=== PATIENT | female | born 1975 | race Caucasian/White ===

== ENCOUNTER 2016-07-28 12:16 | Outpatient (CLI) ==
--- NOTE | 2016-07-28 13:14 | DI ---
Exam: Two views right shoulder Clinical indication: Cervicalgia with right shoulder pain. Findings: There are no fractures, dislocations or other significant bony abnormality. The visualized ribs are within normal limits. The visualized pulmonary parenchyma is unremarkable. Impression: Negative radiographs of the right shoulder.
--- NOTE | 2016-07-28 13:14 | DI ---
EXAM: Three views of the cervical spine HISTORY: Cervicalgia. COMPARISON: None FINDINGS: There is no acute compression fracture or subluxation. There is no lytic or blastic lesio n. There is straightening of the cervical spine. The facets and posterior processes are normal. T he prevertebral soft tissues are normal. The odontoid process is unremarkable. IMPRESSION: 1. No compression fracture or subluxation of the cervical spine. 2. Nonspecific mild straightening of the cervical spine.
--- NOTE | 2016-07-28 13:15 | DI ---
EXAM: LEFT SHOULDER HISTORY: Shoulder and neck pain FINDINGS: Left shoulder three-view. Bone and joint structures are within normal limits. There is n o joint dislocation or fracture identified. Bone density and soft tissues are unremarkable. IMPRESSION: Within normal limits.
== END 2016-07-28 12:17 | disposition home or self-care (01) ==
LOC: RAD 12:16
PROVIDERS: ATTEND Nurse Practitioner Family
DX: M54.2 Cervicalgia (principal); M25.511 Pain in right shoulder

== ENCOUNTER 2016-09-20 12:14 | Outpatient (CLI) ==
--- NOTE | 2016-09-20 13:18 | DI ---
EXAM: Left knee four views HISTORY: Pain in left knee COMPARISON: None FINDINGS: No fracture or dislocation. Small medial and lateral osteophytes. Medial, lateral, [place] llofemoral compartment normal height. No joint effusion. Minimal quadriceps tendon enthesopathy. IMPERSSION: Mild osteoarthritis.
== END 2016-09-20 12:15 | disposition home or self-care (01) ==
LOC: RAD 12:14
PROVIDERS: ATTEND Nurse Practitioner Family
DX: M25.562 Pain in left knee (principal)

== ENCOUNTER 2016-10-24 17:18 | Outpatient (CLI) ==
[2016-10-24 17:45] LABS: ALBUMIN 3.5 g/dL (3.4-5.0); ALBUMIN/GLOBULIN RATIO 0.95; ANION GAP 13.6; BILIRUBIN,TOTAL 0.37 mg/dL (0.00-1.20); BUN/CREATININE RATIO 11.11; CALCIUM 8.8 mg/dL (8.2-10.2); CHOL/HDL RATIO 3.6 (4.5-5.5); CREATININE 0.72 mg/dL (0.60-1.30); POTASSIUM 3.6 mmol/L (3.5-5.10); TOTAL PROTEIN 7.2 g/dL (6.4-8.2)
[2016-10-24 19:06] LABS: BASOPHILS # (AUTO) 0.1 K/uL (0-0.2); BASOPHILS % (AUTO) 0.6 % (0.0-3.0); EOSINOPHILS # (AUTO) 0.2 K/ul (0.0-0.7); EOSINOPHILS % (AUTO) 1.7 % (0.0-7.0); HEMATOCRIT 36.7 % (37.0-47.0); HEMOGLOBIN 11.3 g/dl (12.0-16.0); IMMATURE GRANULOCYTE % (AUTO) 0.4 % (0.0-5.0); LYMPHOCYTES # (AUTO) 2.5 K/uL (0.60-3.4); LYMPHOCYTES % (AUTO) 22.7 (10.0-50.0); MEAN CORPUSCULAR HEMOGLOBIN 23.2 pg (27.0-31.0); MEAN CORPUSCULAR HGB CONC 30.8 (31.8-35.4); MEAN CORPUSCULAR VOLUME 75.2 fl (81.0-99.0); MONOCYTES # (AUTO) 0.6 K/uL (0.4-2.0); MONOCYTES % (AUTO) 5.4 (0-10); NEUTROPHILS # (AUTO) 7.5 K/ul (2.0-6.9); NEUTROPHILS % (AUTO) 69.2; PLATELET COUNT 446 10^3/uL (140-440); RED BLOOD COUNT 4.88 10^6/ul (4.20-5.40)
== END 2016-10-24 17:19 | disposition home or self-care (01) ==
LOC: LAB 17:18
PROVIDERS: ATTEND Nurse Practitioner Family
DX: M54.5 Low back pain (principal); M25.50 Pain in unspecified joint; M51.36 Other intervertebral disc degeneration, lumbar region; G25.81 Restless legs syndrome
CPT/HCPCS: 36415; 80053; 80061; 85025

== ENCOUNTER 2016-10-27 19:36 | Emergency (ER) ==
[2016-10-27 19:44] VITALS: BP 129/84; TEMP 99.2; BMI 30.5
[2016-10-27] MEDS: TORADOL IM STA (21:32)
[2016-10-27] MEDS: NORFLEX IM STA (21:33)
--- NOTE | 2016-10-27 21:37 | CT ---
EXAM: CT left knee without intravenous contrast 10/27/2016. Sagittal and coronal reformatted image s obtained HISTORY: Fall COMPARISON: 09/20/2016 FINDINGS: The osseous structures appear demineralized. There is no evidence of acute fracture or d islocation. The visualized osseous structures appear intact. The extensor mechanism appears intact. The patella appears intact. Small suprapatellar joint effusion. Chronic calcification within the patellar tendon. This could relate to previous injury. IMPRESSION: 1. Mild to moderate osteoarthritic degenerative change. Medial joint space narrowing with osteophy te formation. 2. Diffuse demineralization 3. Small suprapatellar joint effusion. 4. No acute post traumatic osseous abnormality.
--- NOTE | 2016-10-27 21:38 | CT ---
EXAM: CT of the lumbar spine without contrast. HISTORY: Fall. PROCEDURE: Contiguous axial CT images of the lumbar spine without contrast with coronal and sagitta l reformats. FINDINGS: There is normal alignment of the lumbar vertebral bodies and facets. The vertebral body h eights and intervertebral disc spaces are maintained. There are small disc bulges at L3-4, L4-5 and L5, S1. There are posterior osteophytes at L5, S1 resulting in bilateral neural foraminal narrowin g. Impression: No evidence of fracture. Normal alignment of the lumbar spine with degenerative changes as described. Small disc bulges at L3-4, L4-5 and L5, S1. Posterior osteophytes at L5, S1 resulting in bilateral neural foraminal narrowing.
--- NOTE | 2016-10-27 21:38 | CT ---
Exam: CT exam of the pelvis. Comparison: 05/23/2016. CT exam of the abdomen pelvis. Reason for exam: Fall. FINDINGS: No acute fracture or dislocation. The pelvic ring is intact. No unexpected calcific sof t tissue densities. The femoral heads articulate with the acetabula. The symphysis pubis is intact . The sacroiliac joints are symmetric. The sacrum is unremarkable. No inflammatory changes are seen within the pelvis. The bladder is unremarkable. Impression: No acute fracture or dislocation is seen within the pelvis. Report faxed at [id number] hours on 10/27/2016
--- NOTE | 2016-10-27 21:45 | ED.PDOC ---
General ED Provider: Dr. EDUARD GUSTAFSON-ER Chief Complaint: Fall Stated Complaint: i fell and hurt my hip and my left knee Time Seen by Physician: 21:43 Mode of Arrival: Walk-In Information Source: Patient Exam Limitations: No limitations Primary Care Provider: BRISEYDA BAINS Nursing and Triage Documentation Reviewed and Agree: Yes Musculoskeletal Complaint Exam - Lower Extremity Complaint/Exam Location of Pain: Reports: Left, Knee, Hip Mechanism of Injury: Reports: Trauma Onset/Duration: 24hrs Symptoms Are: Still present Onset of Pain: Reports: Immediate Initial Severity: Mild Current Severity: Mild Location: Reports: Discrete Character: Reports: Dull, Aching Alleviating: Reports: None Aggravating: Reports: Movement, Weight bearing Able to Bear Weight: No Associated Signs and Symptoms: Denies: Swelling, Redness, Bruising, Fever, Weakness, Numbness, Tingling DVT Risk Factors: Reports: None Septic Arthritis Risk Factors: Reports: None Related Surgical History: Reports: None Lower Extremity Findings: Present: Swelling, Tenderness, Limited range of motion NV Bundle Intact Distal to Injury: Yes Compartment Syndrome Risk Factors: Present: Pain Maycol's Sign Present: No Differential Diagnoses: Strain, Sprain Review of Systems - Review Of Systems Constitutional: Reports: No symptoms Eyes: Reports: No symptoms Ears, Nose, Mouth, Throat: Reports: No symptoms Respiratory: Reports: No symptoms Cardiac: Reports: No symptoms GI: Reports: No symptoms : Reports: No symptoms Musculoskeletal: Reports: Back pain, Muscle pain Skin: Reports: No symptoms Neurological: Reports: No symptoms Endocrine: Reports: No symptoms Hematologic/Lymphatic: Reports: No symptoms All Other Systems: Reviewed and Negative Past Medical History - Past Medical History Endocrine: Reports: Unknown Cardiovascular: Reports: Unknown Respiratory: Reports: Unknown Hematological: Reports: Unknown Gastrointestinal: Reports: Unknown Genitourinary: Reports: Unknown Neuro/Psych: Reports: Unknown Musculoskeletal: Reports: Unknown Cancer: Reports: Unknown Last Menstrual Period: 4 DAYS - Surgical History General Surgical History: Reports: Unknown - Family History Family History: Reports: Unknown - Social History Smoking Status: Current every day smoker Hx Substance Use: No Alcohol Screening: None Physical Exam - Physical Exam Appearance: Well-appearing, No pain distress, Well-nourished Pain Distress: Mild Eyes: JAVON ENT: Ears normal Neck: Supple Respiratory: Airway patent, Breath sounds clear, Breath sounds equal, Respirations nonlabored Cardiovascular: RRR, Pulses normal, No rub, No murmur GI/: Soft, Nontender, No masses, Bowel sounds normal, No Organomegaly Musculoskeletal: Limited ROM Skin: Warm Neurological: Sensation intact, Motor intact, Reflexes intact, Cranial nerves intact, Alert, Oriented Psychiatric: Affect appropriate, Mood appropriate Critical Care Note - Critical Care Note Total Time (mins): 0 Course - Course Orders, Labs, Meds: Orders Category Date Time Status Ketorolac Tromethamine [Toradol] MEDS 10/27/16 21:18 Discontinued 60 mg IM ONCE STA Orphenadrine Citrate [Norflex] MEDS 10/27/16 21:18 Discontinued 60 mg IM ONCE STA CT KNEE LEFT WITHOUT CONTRAST Stat RADS 10/27/16 19:[address] LUMBAR SPINE W/O CONTRAST Stat RADS 10/27/16 19:[address] PELVIS W/O CONTRAST Stat RADS 10/27/16 19:47 Completed Medications Discontinued Medications Generic Name Dose Route Start Last Admin Trade Name Freq PRN Reason Stop Dose Admin Ketorolac Tromethamine 60 mg 10/27/16 21:18 10/27/16 21:32 Toradol IM 10/27/16 21:19 60 mg ONCE STA Administration Orphenadrine Citrate 60 mg 10/27/16 21:18 10/27/16 21:33 Norflex IM 10/27/16 21:19 60 mg ONCE STA Administration Vital Signs: Temp Pulse Resp BP Pulse Ox 10/27/16 19:39 99.2 F 110 H 16 129/84 97 Departure - Departure Time of Disposition: 21:45 Disposition: HOME SELF-CARE Discharge Problem: Contusion Qualifiers: Encounter type: initial encounter Contusion area: hip Laterality: left Qualifier Code: (S70.02XA) Contusion of left hip, initial encounter Instructions: Contusion in Adults (ED) Condition: Good Pt referred to PMD for follow-up: Yes Additional Instructions: tylenol #3 q 6hrs prn pain #15---heat alt ice--brace to the knee--f/u with pcp next week Allergies/Adverse Reactions: Allergies Sulfa (Sulfonamide Antibiotics) Allergy (Severe, Unverified 10/27/16 19:37) Rash Patient to buy medical alert necktnce, Home Medications: Ambulatory Orders Multivitamin [Daily Multiple Vitamin] 1 each PO DAILY 10/27/16 Disposition Discussed With: Patient, Family
== END 2016-10-27 21:53 | disposition home or self-care (01) ==
LOC: ED 19:36
DX: S70.02XA Contusion of left hip, initial encounter (principal); S89.92XA Unspecified injury of left lower leg, initial encounter; W19.XXXA Unspecified fall, initial encounter; F17.210 Nicotine dependence, cigarettes, uncomplicated
CPT/HCPCS: 96372; 99283

== ENCOUNTER 2016-11-29 14:05 | Outpatient (CLI) ==
--- NOTE | 2016-11-29 15:17 | DI ---
EXAM: Six view cervical spine COMPARISON: Cervical spine series from 07/28/2016 HISTORY: Neck pain FINDINGS: There is no acute fracture or subluxation. The vertebrae have normal height and alignment. The disk spaces are well maintained. Oblique views show no evidence for foraminal stenosis. The pr evertebral soft tissues are unremarkable. The facets maintain appropriate alignment. The dens is i ntact on the open mouth view. IMPRESSION: Normal cervical spine series.
== END 2016-11-29 14:06 | disposition home or self-care (01) ==
LOC: RAD 14:05
PROVIDERS: ATTEND Pain Medicine Interventional Pain Medicine
DX: M47.812 Spondylosis without myelopathy or radiculopathy, cervical region (principal); M50.320 Other cervical disc degeneration, mid-cervical region, unspecified level

== ENCOUNTER 2016-12-04 12:52 | Emergency (ER) ==
[2016-12-04 13:00] VITALS: BP 122/90; TEMP 97.8; BMI 30.7
[2016-12-04] MEDS ORDERED: GI COCKTAIL PO STA (13:42)
[2016-12-04 13:55] LABS: BASOPHILS # (AUTO) 0.1 K/uL (0-0.2); BASOPHILS % (AUTO) 0.5 % (0.0-3.0); EOSINOPHILS # (AUTO) 0.1 K/ul (0.0-0.7); EOSINOPHILS % (AUTO) 0.8 % (0.0-7.0); HEMATOCRIT 36.5 % (37.0-47.0); HEMOGLOBIN 11.4 g/dl (12.0-16.0); IMMATURE GRANULOCYTE % (AUTO) 0.4 % (0.0-5.0); LYMPHOCYTES # (AUTO) 1.3 K/uL (0.60-3.4); LYMPHOCYTES % (AUTO) 13.4 (10.0-50.0); MEAN CORPUSCULAR HEMOGLOBIN 23.1 pg (27.0-31.0); MEAN CORPUSCULAR HGB CONC 31.2 (31.8-35.4); MONOCYTES # (AUTO) 0.4 K/uL (0.4-2.0); MONOCYTES % (AUTO) 4.1 (0-10); NEUTROPHILS # (AUTO) 7.9 K/ul (2.0-6.9); NEUTROPHILS % (AUTO) 80.8; PLATELET COUNT 426 10^3/uL (140-440); RED BLOOD COUNT 4.93 10^6/ul (4.20-5.40); WHITE BLOOD COUNT 9.83 K/ul (4.6-10.2)
[2016-12-04 14:32] LABS: ALBUMIN 3.4 g/dL (3.4-5.0); ALBUMIN/GLOBULIN RATIO 0.94; ANION GAP 13.2; BILIRUBIN,TOTAL 1.03 mg/dL (0.00-1.20); BUN/CREATININE RATIO 12.12; CREATININE 0.66 mg/dL (0.60-1.30); POTASSIUM 4.2 mmol/L (3.5-5.10)
--- NOTE | 2016-12-04 15:57 | CT ---
EXAM: CT Angiogram Chest. HISTORY: Chest pain radiating to the back. COMPARISON: Chest radiograph 05/05/2016. TECHNIQUE: Multiple axial images of the chest were obtained following intravenous administration of 125 mL of Omnipaque 350, low osmolar. Images were reformatted in the sagittal and coronal plane. 3-D and maximum intensity projection reformatted images were created on an independent workstation. FINDINGS: Nonenlarged mediastinal and hilar lymph nodes are present. Heart size is normal. There is no pericardial effusion. Thoracic aorta is normal in caliber without evidence for dissection. No large pulmonary arterial filling defects are seen. Evaluation of the segmental and subsegmental branches is limited by timing of the contrast bolus. No consolidation, pleural effusion or pneumoth orax identified. The gallbladder is distended and contains calcified stones, including near the neck. Multiple vito hepatic lymph nodes are present which are nonspecific. Osseous structures are unremarkable. IMPRESSION: 1. No evidence for aortic dissection. No large central pulmonary embolus. 2. Possible cholecystitis. Correlate with ultrasound as warranted.
--- NOTE | 2016-12-04 15:58 | US ---
EXAM: Ultrasound abdomen limited. HISTORY: Right upper quadrant pain. Abnormal liver enzymes. COMPARISON: None available. TECHNIQUE: Abdominal, real time with image documentation: limited (eg, single organ, quadrant, fol low-up) FINDINGS: The liver demonstrates homogeneous echotexture without intrahepatic biliary dilatation. Portal venous flow is normal in direction. The gallbladder is distended and contains echogenic shad owing structures as well as low-level internal echoes. Gallbladder wall is mildly thickened. Commo n duct measures approximately 0.5 cm. The pancreas is not well seen due to bowel gas. IMPRESSION: Findings suspicious for acute cholecystitis.
--- NOTE | 2016-12-04 17:19 | ED.PDOC ---
General ED Provider: Dr. YESSICA BLANKENSHIP Chief Complaint: Chest Pain Stated Complaint: EPIGASTRIC ABDOMINAL PAIN Time Seen by Physician: 13:00 Mode of Arrival: Walk-In Information Source: Patient Exam Limitations: No limitations Primary Care Provider: [facility] Nursing and Triage Documentation Reviewed and Agree: Yes GI Complaint Exam - Abdominal Pain Complaint/Exam Onset: Sudden Duration: 4 AM SUDDEN RADIATING TO MID BACK AND RUQ Symptoms Are: Still present Timing: Constant Initial Severity: Moderate Current Severity: Moderate Location of Pain: RUQ, Epigastric Character: Reports: Dull, Aching Aggravating: Reports: None Alleviating: Reports: Medication (GI COCKTAIL) Associated Signs and Symptoms: Reports: Cough, Back pain (THORACIC ). Denies: Diaphoresis, Fever, Chest pain, Dizziness, Constipation, Blood in stool, Dysuria , Urinary frequency, Decreased urine output, Decreased appetite, Vaginal bleeding, Vaginal discharge, Nausea, Vomiting, Diarrhea, Sore throat, Decreased activity AAA Risk Factors: Reports: None Cardiac Risk Factors: Reports: None Ectopic Risk Factors: Reports: None Ovarian Torsion Risk Factors: Reports: None Surgical Obstruction Risk Factors: Reports: None Related Surgical History: Reports: None Patient Rh Status: Unknown Abdominal Findings: Present: None Differential Diagnoses: ACS, Appendicitis, Bowel Obstruction, Constipation, Diverticulitis, Gastroenteritis, Hepatitis, Pancreatitis, GB Quality Indicators for AMI: EKG in 10min. Quality Indicators for Cardiac Chest Pain: EKG in 10min. Review of Systems - Review Of Systems Constitutional: Reports: No symptoms Eyes: Reports: No symptoms Ears, Nose, Mouth, Throat: Reports: No symptoms Respiratory: Reports: No symptoms Cardiac: Reports: No symptoms GI: Reports: Abdominal pain : Reports: No symptoms Musculoskeletal: Reports: No symptoms Skin: Reports: No symptoms Neurological: Reports: No symptoms Endocrine: Reports: No symptoms Hematologic/Lymphatic: Reports: No symptoms All Other Systems: Reviewed and Negative Past Medical History - Past Medical History Endocrine: Reports: Unknown Cardiovascular: Reports: Unknown Respiratory: Reports: Unknown Hematological: Reports: Unknown Gastrointestinal: Reports: Unknown Genitourinary: Reports: Unknown Neuro/Psych: Reports: Unknown Musculoskeletal: Reports: Unknown Cancer: Reports: Unknown Last Menstrual Period: last month - Surgical History General Surgical History: Reports: Unknown - Family History Family History: Reports: Unknown - Social History Smoking Status: Current some day smoker Hx Substance Use: No Alcohol Screening: None - Immunizations Tetanus Shot up to Date: No Physical Exam - Physical Exam Appearance: Well-appearing, No pain distress, Well-nourished Eyes: JAVON, EOMI, Conjunctiva clear ENT: Ears normal, Nose normal, Oropharynx normal Respiratory: Airway patent, Breath sounds clear, Breath sounds equal, Respirations nonlabored Cardiovascular: RRR, Pulses normal, No rub, No murmur GI/: Tender (RUQ REBOUND PAIN POSTIVE) Musculoskeletal: Normal strength, ROM intact, No edema, No calf tenderness Skin: Warm, Dry, Normal color Neurological: Sensation intact, Motor intact, Reflexes intact, Cranial nerves intact, Alert, Oriented Psychiatric: Affect appropriate, Mood appropriate Interpretation - Radiology Interpretation Radiology Interpretation By: Radiologist Physician Notification - Case Discussed Physician Notified: SURGERY AMISH Time of Notification: 17:19 Critical Care Note - Critical Care Note Total Time (mins): 0 Course - Course Hematology/Chemistry: 12/04/16 13:30 12/04/16 13:30 Orders, Labs, Meds: Lab Review 12/04/16 13:30 WBC 9.83 RBC 4.93 Hgb 11.4 L Hct 36.5 L MCV 74.0 L MCH 23.1 L MCHC 31.2 L RDW Coeff of [place] 17.3 H Plt Count 426 Immature Gran % (Auto) 0.4 Neut % (Auto) 80.8 Lymph % (Auto) 13.4 Cooper % (Auto) 4.1 Eos % (Auto) 0.8 Baso % (Auto) 0.5 Immature Gran # (Auto) 0.0 Neut # 7.9 H Lymph # 1.3 Cooper # 0.4 Eos # 0.1 Baso # 0.1 D-Dimer (Manual) 819.74 Sodium 139 Potassium 4.2 Chloride 108 H Carbon Dioxide 22 Anion Gap 13.2 BUN 8 Creatinine 0.66 Estimated GFR (MDRD) 99.00 BUN/Creatinine Ratio 12.12 Glucose 110 Calcium 9.0 Total Bilirubin 1.03 AST 437 H ALT 162 H Alkaline Phosphatase 168 H Total Protein 7.0 Albumin 3.4 Globulin 3.6 Albumin/Globulin Ratio 0.94 Orders Category Date Time Status EKG-(ED ONLY) Stat CARDIO 12/04/16 13:12 Completed NPO REMINDER: IMAGING ONCE CARE 12/04/16 13:11 Active NPO REMINDER: IMAGING ONCE CARE 12/04/16 15:27 Active ED IV/MEDIPORT/POWERPORT .ONCE EMERGENCY 12/04/16 13:12 Active CBC W/ AUTO DIFF Stat LAB 12/04/16 13:30 Completed COMPREHENSIVE METABOLIC PANEL Stat LAB 12/04/16 13:30 Completed D-DIMER Stat LAB 12/04/16 13:30 Completed 0.9 % Sodium Chloride [Saline Flush] MEDS 12/04/16 13:12 Active 1 syr IVF PRN PRN Mag-Al Plus//Lidocaine [Gi Cocktail] MEDS 12/04/16 13:42 Discontinued 30 ml PO ONCE STA CTA ANGIO CHEST Stat RADS 12/04/16 13:11 Completed ULTRASOUND ABDOMEN, RT. UPPER QUAD [U/S ABDOMEN, RT. RADS 12/04/16 15:27 Completed UPPER QUAD] Stat Medications Generic Name Dose Route Start Last Admin Trade Name Freq PRN Reason Stop Dose Admin Sodium Chloride 1 syr 12/04/16 13:12 Saline Flush IVF PRN PRN To flush IV Discontinued Medications Generic Name Dose Route Start Last Admin Trade Name Freq PRN Reason Stop Dose Admin Al Hydroxide/Mg Hydroxide 30 ml 12/04/16 13:42 12/04/16 13:48 Gi Cocktail PO 12/04/16 13:43 30 ml ONCE STA Administration Vital Signs: Temp Pulse Resp BP Pulse Ox 12/04/16 12:56 97.8 F 84 16 122/90 100 Departure - Departure Time of Disposition: 18:00 Disposition: TSF SHORT-TRM HOSP Discharge Problem: Acute cholecystitis Instructions: Biliary Colic (ED), Gallstones (ED) Condition: Good Pt referred to PMD for follow-up: Yes (AMISH) Additional Instructions: Please call your Family Physician as soon as possible to schedule a follow-up appointment. Allergies/Adverse Reactions: Allergies Sulfa (Sulfonamide Antibiotics) Allergy (Severe, Unverified 12/04/16 13:03) Rash Patient to buy medical alert necklace, Home Medications: Ambulatory Orders Multivitamin [Daily Multiple Vitamin] 1 each PO DAILY 10/27/16 Disposition Discussed With: Patient
[2016-12-04] MEDS ORDERED: MORPHINE 4 MG/ML SYRINGE IVP STA (17:23)
== END 2016-12-04 17:30 | disposition short-term general hospital (02) ==
LOC: ED 12:52
DX: K81.0 Acute cholecystitis (principal); F17.210 Nicotine dependence, cigarettes, uncomplicated
CPT/HCPCS: 36415; 80053; 85025; 85379; 93005; 93010; 96374; 96375; 99284; 99285

== ENCOUNTER 2016-12-04 17:41 | Outpatient (CLI) ==
[2016-12-04 13:00] VITALS: BMI 30.7
== END 2016-12-04 17:42 | disposition short-term general hospital (02) ==
LOC: AMBL 17:41
PROVIDERS: ATTEND Internal Medicine
DX: K82.9 Disease of gallbladder, unspecified (principal)

== ENCOUNTER 2016-12-28 11:15 | Outpatient (CLI) ==
--- NOTE | 2016-12-28 11:37 | DI ---
EXAM: Five views of the cervical spine HISTORY: Cervical disc degenerative disease. COMPARISON: Cervical spine x-ray 11/29/2016 and 07/28/2016 FINDINGS: Vertebral bodies demonstrate no acute compression fracture or subluxation. There is no ly tic or blastic lesion. The facets, posterior processes are normal. There is straightening of the c ervical spine. Prevertebral soft tissues are normal. The neural foramen are patent. The odontoid process is unremarkable. IMPRESSION: No acute compression fracture or subluxation of the cervical spine with mild straightening that ma y represent positioning versus muscle spasm.
== END 2016-12-28 11:16 | disposition home or self-care (01) ==
LOC: RAD 11:15
PROVIDERS: ATTEND Pain Medicine Interventional Pain Medicine
DX: M47.812 Spondylosis without myelopathy or radiculopathy, cervical region (principal); M50.320 Other cervical disc degeneration, mid-cervical region, unspecified level

== ENCOUNTER 2017-03-26 12:59 | Outpatient (CLI) ==
[2017-03-26 13:13] LABS: BASOPHILS # (AUTO) 0.1 K/uL (0-0.2); BASOPHILS % (AUTO) 0.6 % (0.0-3.0); EOSINOPHILS # (AUTO) 0.4 K/ul (0.0-0.7); EOSINOPHILS % (AUTO) 2.2 % (0.0-7.0); HEMATOCRIT 31.3 % (37.0-47.0); HEMOGLOBIN 9.5 g/dl (12.0-16.0); IMMATURE GRANULOCYTE % (AUTO) 0.6 % (0.0-5.0); LYMPHOCYTES # (AUTO) 5.1 K/uL (0.60-3.4); LYMPHOCYTES % (AUTO) 32.5 (10.0-50.0); MEAN CORPUSCULAR HEMOGLOBIN 21.9 pg (27.0-31.0); MEAN CORPUSCULAR HGB CONC 30.4 (31.8-35.4); MEAN CORPUSCULAR VOLUME 72.3 fl (81.0-99.0); MONOCYTES % (AUTO) 6.3 (0-10); NEUTROPHILS % (AUTO) 57.8; PLATELET COUNT 445 10^3/uL (140-440); RED BLOOD COUNT 4.33 10^6/ul (4.20-5.40); WHITE BLOOD COUNT 15.59 K/ul (4.6-10.2)
[2017-03-26 13:34] LABS: ALBUMIN 3.3 g/dL (3.4-5.0); ALBUMIN/GLOBULIN RATIO 0.97; BILIRUBIN,TOTAL 0.19 mg/dL (0.00-1.20); BUN/CREATININE RATIO 12.85; CALCIUM 9.1 mg/dL (8.2-10.2); CHOL/HDL RATIO 3.2 (4.5-5.5); CREATININE 0.7 mg/dL (0.60-1.30); TOTAL PROTEIN 6.7 g/dL (6.4-8.2)
== END 2017-03-26 13:00 | disposition home or self-care (01) ==
LOC: LAB 12:59
PROVIDERS: ATTEND Nurse Practitioner Family
DX: E78.5 Hyperlipidemia, unspecified (principal)
CPT/HCPCS: 36415; 80053; 80061; 85025

== ENCOUNTER 2017-03-27 15:04 | Outpatient (CLI) | END 2017-03-27 15:05 | disposition home or self-care (01) | LOC: LAB 15:04 | PROVIDERS: ATTEND Nurse Practitioner Family | DX: B80 Enterobiasis (principal) | CPT/HCPCS: 87015; 87045; 87899 ==

== ENCOUNTER 2017-04-02 16:43 | Outpatient (CLI) ==
[2017-04-02 16:50] LABS: BASOPHILS # (AUTO) 0.1 K/uL (0-0.2); BASOPHILS % (AUTO) 0.4 % (0.0-3.0); EOSINOPHILS # (AUTO) 0.3 K/ul (0.0-0.7); EOSINOPHILS % (AUTO) 2.5 % (0.0-7.0); HEMATOCRIT 35.7 % (37.0-47.0); HEMOGLOBIN 10.3 g/dl (12.0-16.0); IMMATURE GRANULOCYTE % (AUTO) 0.4 % (0.0-5.0); IMMATURE RETIC FRACTION 33.3; LYMPHOCYTES # (AUTO) 2.9 K/uL (0.60-3.4); LYMPHOCYTES % (AUTO) 25.5 (10.0-50.0); MEAN CORPUSCULAR HEMOGLOBIN 21.1 pg (27.0-31.0); MEAN CORPUSCULAR HGB CONC 28.9 (31.8-35.4); MONOCYTES # (AUTO) 0.4 K/uL (0.4-2.0); MONOCYTES % (AUTO) 3.8 (0-10); NEUTROPHILS # (AUTO) 7.6 K/ul (2.0-6.9); NEUTROPHILS % (AUTO) 67.4; PLATELET COUNT 491 10^3/uL (140-440); RED BLOOD COUNT 4.89 10^6/ul (4.20-5.40); WHITE BLOOD COUNT 11.31 K/ul (4.6-10.2)
[2017-04-02 16:54] LABS: ANISOCYTOSIS NOT PRESENT (NOT PRESENT)
[2017-04-02 16:57] LABS: HYPOCHROMASIA 1+ (NOT PRESENT); MICROCYTOSIS 1+ (NOT PRESENT)
[2017-04-02 17:31] LABS: FERRITIN 13.19 ng/mL (4.63-204.00)
== END 2017-04-02 16:44 | disposition home or self-care (01) ==
LOC: LAB 16:43
PROVIDERS: ATTEND Nurse Practitioner Family
DX: B80 Enterobiasis (principal); D64.9 Anemia, unspecified
CPT/HCPCS: 36415; 82607; 82728; 83540; 83550; 84466; 85008; 85025; 85045

== ENCOUNTER 2017-05-14 09:48 | Outpatient (CLI) ==
--- NOTE | 2017-05-14 11:57 | MAMMO ---
EXAM: Digital screening mammogram with tomosynthesis HISTORY: Screening COMPARISON: 05/11/2016 FINDINGS: Digital MLO and CC views of the right and left breast were performed. Tomosynthesis was p erformed. Computer aided detection was utilized. There are scattered fibroglandular densities. The re is an asymmetry in the left medial breast seen on the CC view. There is no evidence for mass, asy mmetry, distortion, or suspicious calcifications in the right breast. IMPRESSION: 1. Asymmetry in the left breast. Diagnostic mammogram and possible ultrasound recommended for furthe r evaluation. 2. Negative right breast mammogram. BIRADS category 0, incomplete
== END 2017-05-14 09:49 | disposition home or self-care (01) ==
LOC: RAD 09:48
PROVIDERS: ATTEND Nurse Practitioner Family
DX: Z12.31 Encounter for screening mammogram for malignant neoplasm of breast (principal)
CPT/HCPCS: 77067

== ENCOUNTER 2017-05-21 09:01 | Outpatient (CLI) ==
--- NOTE | 2017-05-21 10:00 | MAMMO ---
EXAM: Left digital diagnostic mammogram History: Left breast asymmetry. Comparison: Bilateral mammogram 05/14/2017, bilateral mammogram 05/11/2016 Findings: Left breast density is scattered. Additional spot compression views of the left breast re veal a benign cluster of cysts or benign lymph node in the region of interest that is not significant ly changed compared to study done on 05/11/2016. There are no suspicious masses and no suspicious mi crocalcifications. Impression: Benign left mammogram. Recommend return to routine screening mammography schedule. BIRADS 2
== END 2017-05-21 09:02 | disposition home or self-care (01) ==
LOC: RAD 09:01
PROVIDERS: ATTEND Nurse Practitioner Family
DX: R92.8 Other abnormal and inconclusive findings on diagnostic imaging of breast (principal)

== ENCOUNTER 2017-07-03 14:17 | Outpatient (CLI) ==
--- NOTE | 2017-07-03 14:51 | DI ---
EXAM: Two views of the chest. History: Obesity, chest pain. Comparison: Chest radiograph 05/05/2016 Findings: Heart size is normal. No focal consolidation. No appreciable pleural fluid and no pneumo thorax. Surgical clips seen within the upper abdomen. Impression: No acute cardiopulmonary process
== END 2017-07-03 14:18 | disposition home or self-care (01) ==
LOC: RAD 14:17
PROVIDERS: ATTEND Nurse Practitioner Family
DX: E78.5 Hyperlipidemia, unspecified (principal); D64.9 Anemia, unspecified; G25.81 Restless legs syndrome; E66.9 Obesity, unspecified
CPT/HCPCS: 36415; 80053; 80061; 85025; 93005; 93010

== ENCOUNTER 2017-07-13 06:26 | Outpatient (CLI) ==
--- NOTE | 2017-07-16 08:53 | STRESSECHO ---
Date of Test: 07/13/17 Reason for Exam: ABNORMAL EKG Ordering Physician: BRISEYDA BAINS, NURSE PRACTITIONER Current Medications: MELOXICAM, FLEXERIL, NEURONTIN, NORCO, IRON Physical Findings: S1, S2, NO S3 Resting EKG: SINUS RHYTHM/ NO ACUTE CHANGES Target Heart Rate: 152/179 STAGE MPH/GRADE HEART RATE BPM BLOOD PRESSURE mmhg RHYTHM S-T SEGMENT +/- UP DOWN SYMPTOMS,COMMENTS At Rest 95 118/88 SR X NONE 1 1.7/10% 126 140/78 SR X NONE 2 2.5/12% 140 120/60 SR X NONE 3 3.4/14% 4 4.2/16% 5 5.0/18% Immediately after 157 SR X SHORT OF BREATH Durations of Exercise: 6:23 Maximum Heart Rate Reached: 157 Reason for Termination: SHORT OF BREATH 4 MINUTES POST EXERCISE: HR 97 BPM, BP 124/86 MMHG INTERPRETATION: 98% OXYGEN SATURATION WITH EXERCISE ON ROOM AIR METS 8.0 1. NO EVIDENCE OF ISCHEMIA BY ST-T WAVE 2. NO CHEST PAIN OR DISCOMFORT 3. BLOOD PRESSURE RESPONSE: NORMAL 4. NO ARRHYTHMIAS NORMAL LEFT VENTRICULAR CONTRACTILITY--RESTING AND POST EXERCISE MTDD
--- NOTE | 2017-07-16 09:03 | ECHOSTRESS ---
Date of Exam: 07/13/17 Ordering Physician: BRISEYDA BAINS Reason for Echo: ABNORMAL EKG, STRESS TEST--NO ISCHEMIA M-Mode Normal Adult Results LV Dimensions Normal Adult Results AoV Opening excursions >1.6 LVEDD-base- 3.5-5.8 Ao root dimensions 2.0-3.7 LVESD-base- 3.1-4.6 L. Atrium dimensions 1.9-3.8 Post. Wall thickness 0.8-1.1 IV septum (thickness) 0.7-1.2 Post. Wall excursion 0.72-1.3 Septal motion Systolic motion R. Ventricular cavity 1.5-2.0 LVEF 60% Paradoxical septal wall motion 2-D: NORMAL LEFT VENTRICULAR CONTRACTILITY--RESTING AND POST EXERCISE M-MODE: MV: AV: TV: PV: CHAMBER SIZE: WALL MOTION: NORMAL LEFT VENTRICULAR CONTRACTILITY--RESTING AND POST EXERCISE PERICARDIUM: INTERPRETATION: 1. NORMAL LEFT VENTRICULAR CONTRACTILITY--RESTING AND POST EXERCISE MTDD
== END 2017-07-13 06:27 | disposition home or self-care (01) ==
LOC: CAR 06:26
PROVIDERS: ATTEND Nurse Practitioner Family
DX: R94.31 Abnormal electrocardiogram [ECG] [EKG] (principal)

== ENCOUNTER 2017-07-23 21:14 | Emergency (ER) ==
[2017-07-23 21:28] VITALS: BP 131/89; TEMP 98.8; BMI 32.9
--- NOTE | 2017-07-23 21:49 | ED.PDOC ---
General ED Provider: Dr. EDUARD GUSTAFSON-ER Chief Complaint: Urinary Problem Stated Complaint: it hurts to pee and i also have this thing on my belly Time Seen by Physician: 21:15 Mode of Arrival: Walk-In Information Source: Patient Exam Limitations: No limitations Primary Care Provider: BRISEYDA BAINS Nursing and Triage Documentation Reviewed and Agree: Yes Reviewed sepsis parameters & appropriate labs ordered?: Yes System Inflammatory Response Syndrome: Not Applicable Sepsis Protocol: For patient's 13 years and over: Temp is 96.8 and below OR 101 and greater Pulse >90 BPM Resp >20/minute Acutely Altered Mental Status Are patient's symptoms suggestive of a new infection, such as: -Pneumonia -Skin, Soft Tissue -Endocarditis -UTI -Bone, Joint Infection -Implantable Device -Acute Abdominal Infection -Wound Infection -Meningitis -Blood Stream Catheter Infection -Unknown Complaint Exam - UTI Female Complaint/Exam Patient Complains of: Reports: Painful urination Onset/Duration: 2 days Symptoms Are: Still present Timing: Constant Initial Severity: Mild Current Severity: Mild Location of Pain: Reports: Suprapubic Associated Signs and Symptoms: Denies: Fever, Chills, Flank pain, Dyspareunia, Vaginal discharge Patient Rh Status: Unknown CVA Tenderness: No Suprapubic Tenderness: No Differential Diagnoses: Cystitis Review of Systems - Review Of Systems Constitutional: Reports: No symptoms Eyes: Reports: No symptoms Ears, Nose, Mouth, Throat: Reports: No symptoms Respiratory: Reports: No symptoms Cardiac: Reports: No symptoms GI: Reports: No symptoms : Reports: Dysuria Musculoskeletal: Reports: No symptoms Skin: Reports: No symptoms Neurological: Reports: No symptoms Endocrine: Reports: No symptoms Hematologic/Lymphatic: Reports: No symptoms All Other Systems: Reviewed and Negative Past Medical History - Past Medical History Previously Healthy: No Endocrine: Reports: Unknown Cardiovascular: Reports: Unknown Respiratory: Reports: Unknown Hematological: Reports: Unknown Gastrointestinal: Reports: Unknown Genitourinary: Reports: Unknown Neuro/Psych: Reports: Unknown Musculoskeletal: Reports: Unknown Cancer: Reports: Unknown Last Menstrual Period: 06/25/17 - Surgical History General Surgical History: Reports: Unknown - Family History Family History: Reports: Unknown - Social History Smoking Status: Current some day smoker Hx Substance Use: No Alcohol Screening: None - Immunizations Tetanus Shot up to Date: No Physical Exam - Physical Exam Appearance: Well-appearing, No pain distress, Well-nourished Eyes: JAVON, EOMI, Conjunctiva clear ENT: Ears normal, Nose normal, Oropharynx normal Neck: Supple Respiratory: Airway patent, Breath sounds clear, Breath sounds equal, Respirations nonlabored Cardiovascular: RRR, Pulses normal, No rub, No murmur GI/: Soft, Nontender, No masses, Bowel sounds normal, No Organomegaly Musculoskeletal: Normal strength, ROM intact, No edema, No calf tenderness Skin: Warm, Dry, Normal color Neurological: Sensation intact Psychiatric: Affect appropriate (exam does confirm 1cm anterior abdomen erythematous pustular lesion), Mood appropriate Critical Care Note - Critical Care Note Total Time (mins): 0 Course - Course Orders, Labs, Meds: Lab Review 07/23/17 21:30 Urine Color Yellow Urine Clarity Cloudy Urine pH 6.5 Ur Specific [place] 1.015 Urine Protein 1+ Urine Glucose (UA) Negative Urine Ketones Negative Urine Blood 2+ Urine Nitrite Negative Urine Bilirubin Negative Urine Urobilinogen 0.2 Ur Leukocyte Esterase 2+ Urine Microscopic WBC 50-100 Ur Squamous Epith Cells Not present Urine Bacteria Trace Orders Category Date Time Status UA [URINALYSIS C & S IF INDICATED] Stat LAB 07/23/17 21:30 Completed URINE CULTURE Stat LAB 07/23/17 21:34 Ordered Vital Signs: Temp Pulse Resp BP Pulse Ox 07/23/17 21:14 98.8 F 91 H 20 131/89 99 Departure - Departure Time of Disposition: 21:49 Disposition: HOME SELF-CARE Discharge Problem: Urinary symptoms, Folliculitis Instructions: Urinary Tract Infection in Women (ED) Condition: Good Pt referred to PMD for follow-up: Yes IPMP verified?: No Additional Instructions: doxycycline 100mg bid x 7days--bactroban ointment apply bid to abdominal wall lesion x 7days--f/u with pcp this week to check on urine culture and check skin lesion Allergies/Adverse Reactions: Allergies Sulfa (Sulfonamide Antibiotics) Allergy (Severe, Verified 07/23/17 21:28) Rash Patient to buy medical alert necklace, Home Medications: Ambulatory Orders Multivitamin [Daily Multiple Vitamin] 1 each PO DAILY 10/27/16 Azelastine HCl 6 ml OP BID 07/03/17 Hydrocodone/Acetaminophen [[place] 5-325 Tablet] 1 each PO TID 07/03/17 Disposition Discussed With: Patient, Family
== END 2017-07-23 22:16 | disposition home or self-care (01) ==
LOC: ED 21:14
DX: N39.0 Urinary tract infection, site not specified (principal); L73.9 Follicular disorder, unspecified; F17.210 Nicotine dependence, cigarettes, uncomplicated
CPT/HCPCS: 81001; 87086; 87186; 99283

== ENCOUNTER 2017-07-24 16:10 | Outpatient (CLI) ==
[2017-07-23 21:28] VITALS: BMI 32.9
== END 2017-07-24 16:11 | disposition home or self-care (01) ==
LOC: LAB 16:10
PROVIDERS: ATTEND Nurse Practitioner Family
DX: E66.9 Obesity, unspecified (principal)
CPT/HCPCS: 36415; 84439; 84443

== ENCOUNTER 2017-08-21 11:52 | Outpatient (CLI) ==
[2017-08-21] MEDS ORDERED: VITAMIN B-12 IM STA (12:06)
[2017-08-21] MEDS ORDERED: VENOFER 200 MG in SODIUM CHLORIDE 100 ML IV ONE (12:08)
[2017-08-21 12:16] VITALS: BP 128/85; TEMP 97.8
== END 2017-08-21 11:53 | disposition home or self-care (01) ==
LOC: OPMED 11:52
PROVIDERS: ATTEND Internal Medicine
DX: E53.8 Deficiency of other specified B group vitamins (principal)
CPT/HCPCS: 96365

== ENCOUNTER 2017-08-23 12:57 | Outpatient (CLI) ==
[2017-08-23 13:13] VITALS: BP 142/68; TEMP 97.4
[2017-08-23] MEDS ORDERED: VENOFER 200 MG in SODIUM CHLORIDE 100 ML IV ONE (13:16)
== END 2017-08-23 12:58 | disposition home or self-care (01) ==
LOC: OPMED 12:57
PROVIDERS: ATTEND Internal Medicine
DX: D50.9 Iron deficiency anemia, unspecified (principal); K90.9 Intestinal malabsorption, unspecified
CPT/HCPCS: 96365

== ENCOUNTER 2017-08-24 12:42 | Outpatient (CLI) ==
--- NOTE | 2017-08-24 13:21 | CT ---
EXAM: CT Abdomen without contrast. CT Pelvis without contrast. HISTORY: Worsening right lower quadrant pain. COMPARISON: 05/23/2016. TECHNIQUE: Multiple axial images of the abdomen and pelvis were obtained without intravenous contras t. Images were reformatted in the coronal plane. FINDINGS: Please note that evaluation of the abdominal and pelvic structures is limited due to lack of intravenous contrast. The lung bases are clear. No acute osseous abnormality identified. Gallbladder is absent. The liver, pancreas, spleen, and adrenal glands demonstrate normal contour. No calcified renal stones or hydronephrosis detected. Enteric contrast is present throughout the stomach, small bowel and right colon. The bowel is normal in course and caliber without evidence for obstruction or inflammatory process. The appendix is nor mal. Uterus demonstrates normal contour. Urinary bladder is unremarkable. No free fluid or free ai r identified. IMPRESSION: No acute abnormality within the abdomen or pelvis.
== END 2017-08-24 12:43 | disposition home or self-care (01) ==
LOC: RAD 12:42
PROVIDERS: ATTEND Nurse Practitioner Family
DX: R10.84 Generalized abdominal pain (principal)

== ENCOUNTER 2017-08-28 12:52 | Outpatient (CLI) ==
[2017-08-28 13:12] VITALS: BP 144/82; TEMP 97.2
[2017-08-28] MEDS ORDERED: VENOFER 200 MG in SODIUM CHLORIDE 100 ML IV ONE (13:13)
--- NOTE | 2017-08-28 13:21 | ED.PDOC ---
Procedures - IV/Art Line Insertion Location: lt forearm Type of Line: Peripheral IV Invasive Line/IV Catheter Gauge: 22 Number of Attempts: 1 Blood Return Positive: Yes Invasive Line/IV Flushes Without Difficulty: Yes Conscious Sedation - Pre-op Assessment Weight: 177 lb Surgical History: LEFT LEG SURGERY, TUBAL - Medical History Past Medical History: Depression Other History: RLS, BACK PROBLEMS
== END 2017-08-28 12:53 | disposition home or self-care (01) ==
LOC: OPMED 12:52
PROVIDERS: ATTEND Internal Medicine
DX: D50.9 Iron deficiency anemia, unspecified (principal); K90.9 Intestinal malabsorption, unspecified
CPT/HCPCS: 96365

== ENCOUNTER 2017-08-30 13:02 | Outpatient (CLI) ==
[2017-08-30] MEDS ORDERED: VENOFER 200 MG in SODIUM CHLORIDE 100 ML IV ONE (13:09)
[2017-08-30 13:12] VITALS: BP 122/80; TEMP 97.4
== END 2017-08-30 14:43 | disposition home or self-care (01) ==
LOC: OPMED 13:02
PROVIDERS: ATTEND Internal Medicine
DX: D50.9 Iron deficiency anemia, unspecified (principal); K90.9 Intestinal malabsorption, unspecified
CPT/HCPCS: 96365

== ENCOUNTER 2017-09-04 12:55 | Outpatient (CLI) ==
[2017-09-04 13:21] VITALS: BP 135/94; TEMP 97.6
[2017-09-04] MEDS: VENOFER 200 MG in SODIUM CHLORIDE 100 ML IV ONE (13:47)
== END 2017-09-04 12:56 | disposition home or self-care (01) ==
LOC: OPMED 12:55
PROVIDERS: ATTEND Internal Medicine
DX: D50.9 Iron deficiency anemia, unspecified (principal); K90.9 Intestinal malabsorption, unspecified
CPT/HCPCS: 96365

== ENCOUNTER 2017-09-06 13:04 | Outpatient (CLI) ==
[2017-09-06 13:20] VITALS: BP 117/83; TEMP 97.6
[2017-09-06] MEDS: VENOFER 200 MG in SODIUM CHLORIDE 100 ML IV ONE (13:41)
== END 2017-09-06 14:50 | disposition home or self-care (01) ==
LOC: OPMED 13:04
PROVIDERS: ATTEND Internal Medicine
DX: D50.9 Iron deficiency anemia, unspecified (principal); K90.9 Intestinal malabsorption, unspecified
CPT/HCPCS: 96365

== ENCOUNTER 2017-09-13 12:51 | Outpatient (CLI) ==
[2017-09-13] MEDS ORDERED: VENOFER 200 MG in SODIUM CHLORIDE 100 ML IV ONE (13:06)
[2017-09-13 13:23] VITALS: BP 112/81; TEMP 97.6
== END 2017-09-13 12:52 | disposition home or self-care (01) ==
LOC: OPMED 12:51
PROVIDERS: ATTEND Internal Medicine
DX: D50.9 Iron deficiency anemia, unspecified (principal); K90.9 Intestinal malabsorption, unspecified
CPT/HCPCS: 96365

== ENCOUNTER 2017-09-18 12:47 | Outpatient (CLI) ==
[2017-09-18] MEDS ORDERED: VITAMIN B-12 SUBCUT STA (13:06)
[2017-09-18] MEDS ORDERED: VENOFER 200 MG in SODIUM CHLORIDE 100 ML IV ONE (13:08)
[2017-09-18 14:30] VITALS: BP 128/86; TEMP 98.4
== END 2017-09-18 14:50 | disposition home or self-care (01) ==
LOC: OPMED 12:47
PROVIDERS: ATTEND Internal Medicine
DX: D50.9 Iron deficiency anemia, unspecified (principal); K90.9 Intestinal malabsorption, unspecified

== ENCOUNTER 2017-10-16 12:26 | Outpatient (CLI) | END 2017-10-16 12:27 | disposition home or self-care (01) | LOC: FCC-LAB 12:26 | PROVIDERS: ATTEND Nurse Practitioner Family | DX: D64.9 Anemia, unspecified (principal); E78.5 Hyperlipidemia, unspecified; E66.9 Obesity, unspecified; F17.200 Nicotine dependence, unspecified, uncomplicated | CPT/HCPCS: 36415; 80053; 80061; 81001; 85025 ==

== ENCOUNTER 2017-11-11 02:32 | Emergency (ER) ==
[2017-11-11 02:47] VITALS: BP 146/84; TEMP 98.8; BMI 29.9
[2017-11-11] MEDS ORDERED: SOLU-MEDROL 125 MG IM STA (03:33)
--- NOTE | 2017-11-11 03:36 | ED.PDOC ---
General ED Provider: Dr. NILSON JONES Chief Complaint: Rash Stated Complaint: Patient is a 42 year old female who complains of bites on her skin which she thinks is chiggars since she moved her boyfriends bed to her room. He apparently had pets. Time Seen by Physician: 03:20 Mode of Arrival: Walk-In Information Source: Patient Exam Limitations: No limitations Primary Care Provider: BRISEYDA BAINS Seen Within Last 72 Hours for Same Complaint By: ED Nursing and Triage Documentation Reviewed and Agree: No Reviewed sepsis parameters & appropriate labs ordered?: No System Inflammatory Response Syndrome: Not Applicable Sepsis Protocol: For patient's 13 years and over: Temp is 96.8 and below OR 101 and greater Pulse >90 BPM Resp >20/minute Acutely Altered Mental Status Are patient's symptoms suggestive of a new infection, such as: -Pneumonia -Skin, Soft Tissue -Endocarditis -UTI -Bone, Joint Infection -Implantable Device -Acute Abdominal Infection -Wound Infection -Meningitis -Blood Stream Catheter Infection -Unknown System Inflammatory Response Syndrome: Not Applicable Skin Complaint Exam - Skin Rash/Itching Complaint/Exam Onset/Duration: 3 days Symptoms Are: Still present Initial Severity: Moderate Location: Diffuse Potential Exposures: Reports: Insect bite Prior Treatment: [place] Tree oil Aggravating: Reports: Heat, Clothing Associated Signs and Symptoms: Denies: Difficulty breathing, Fever, Chills Skin Findings: Present: Lesions (erythematous papules) Review of Systems - Review Of Systems Constitutional: Reports: No symptoms Skin: Reports: Rash Neurological: Reports: Anxiety All Other Systems: Reviewed and Negative Past Medical History - Past Medical History Previously Healthy: No Endocrine: Reports: None Cardiovascular: Reports: None Respiratory: Reports: None Hematological: Reports: None Gastrointestinal: Reports: None Genitourinary: Reports: None Neuro/Psych: Reports: Anxiety, Depression Musculoskeletal: Reports: Arthritis, Back Pain, Other (Restless Leg) Cancer: Reports: Unknown Last Menstrual Period: 2-3 WEEKS AGO - Surgical History General Surgical History: Reports: Tubal ligation, , Orthopedic (left leg surgery ), Other, Unknown - Family History Family History: Reports: Unknown - Social History Smoking Status: Current every day smoker, Heavy tobacco smoker Hx Substance Use: No Alcohol Screening: None - Immunizations Tetanus Shot up to Date: No Physical Exam - Physical Exam Appearance: Well-appearing, Ill-appearing, No pain distress, Well-nourished Eyes: JAVON, EOMI, Conjunctiva clear ENT: Ears normal, Nose normal, Oropharynx normal Respiratory: Airway patent, Breath sounds clear, Breath sounds equal, Respirations nonlabored Cardiovascular: RRR, Pulses normal, No rub, No murmur GI/: Soft, Nontender, No masses, Bowel sounds normal, No Organomegaly Musculoskeletal: Normal strength, ROM intact, No edema, No calf tenderness Skin: Warm, Dry, Normal color Neurological: Sensation intact, Motor intact, Reflexes intact, Cranial nerves intact, Alert, Oriented Psychiatric: Anxious Critical Care Note - Critical Care Note Total Time (mins): 0 Course - Course Orders, Labs, Meds: Orders Category Date Time Status Methylprednisolone Sod Succ/Pf [Solu-Medrol 125 mg] MEDS 11/11/17 03:33 Discontinued 125 mg IM ONCE STA Medications Discontinued Medications Generic Name Dose Route Start Last Admin Trade Name Freq PRN Reason Stop Dose Admin Methylprednisolone Sodium Succinate 125 mg 11/11/17 03:33 11/11/17 03:44 Solu-Medrol 125 Mg IM 11/11/17 03:34 125 mg ONCE STA Administration Vital Signs: Temp Pulse Resp BP Pulse Ox 11/11/17 02:33 98.8 F 92 H 20 146/84 H 99 Departure - Departure Time of Disposition: 04:01 Disposition: HOME SELF-CARE Discharge Problem: Chigger bite, Yeast infection of the vagina Instructions: Chigger Bite (ED) Condition: Stable Pt referred to PMD for follow-up: Yes IPMP verified?: No Additional Instructions: Take medications as prescribed. Follow up with PCP in 2 days. Prescriptions: Fluconazole [Diflucan] 150 mg PO ONCE #1 tablet Methylprednisolone [Medrol Dosepak] 4 mg PO DIRECTED #1 pkg Permethrin [Nix Lice Treatment] 1 applic TP ONCE #30 applic Triamcinolone Acetonide [Triamcinolone Acetonide 0.1% Cream] 80 gm TP BID 40 Days #45 cream..g. Allergies/Adverse Reactions: Allergies Sulfa (Sulfonamide Antibiotics) Allergy (Severe, Verified 11/11/17 02:52) Rash Patient to buy medical alert necklace, Home Medications: Ambulatory Orders Multivitamin [Daily Multiple Vitamin] 1 each PO DAILY 10/27/16 Hydrocodone/Acetaminophen [[place] 5-325 Tablet] 1 each PO TID 07/03/17 Cyanocobalamin (Vitamin B-12) [Vitamin B-12] 1,000 mcg IJ MONTHLY #1 vial Cyclobenzaprine HCl [Flexeril] 10 mg PO BID 11/11/17 Fluconazole [Diflucan] 150 mg PO ONCE #1 tablet 11/11/17 Methylprednisolone [Medrol Dosepak] 4 mg PO DIRECTED #1 pkg 11/11/17 Permethrin [Nix Lice Treatment] 1 applic TP ONCE #30 applic 11/11/17 Potassium Chloride [K-Tab ER] 20 meq PO DAILY 11/11/17 Triamcinolone Acetonide [Triamcinolone Acetonide 0.1% Cream] 80 gm TP BID 40 Days #45 cream..g. 11/11/17 Disposition Discussed With: Patient, Family
== END 2017-11-11 04:22 | disposition home or self-care (01) ==
LOC: ED 02:32
DX: B88.0 Other acariasis (principal); B37.3 Candidiasis of vulva and vagina; W57.XXXA Bitten or stung by nonvenomous insect and other nonvenomous arthropods, initial encounter; F17.210 Nicotine dependence, cigarettes, uncomplicated
CPT/HCPCS: 96372; 99282

== ENCOUNTER 2017-11-21 16:33 | Outpatient (CLI) | END 2017-11-21 16:34 | disposition home or self-care (01) | LOC: FCC-LAB 16:33 | PROVIDERS: ATTEND Nurse Practitioner Family | DX: T07.XXXA Unspecified multiple injuries, initial encounter (principal) | CPT/HCPCS: 36415; 80053; 80074; 80306; 81001; 86592; 86631; 86695; 86696; 87389; 87800 ==

== ENCOUNTER 2017-12-05 15:20 | Outpatient (CLI) | END 2017-12-05 15:21 | disposition home or self-care (01) | LOC: FCC-LAB 15:20 | PROVIDERS: ATTEND Nurse Practitioner Family | DX: T07.XXXA Unspecified multiple injuries, initial encounter (principal); L29.9 Pruritus, unspecified | CPT/HCPCS: 36415; 80053; 80307; 82607; 85025 ==

== ENCOUNTER 2018-02-12 10:04 | Outpatient (CLI) | END 2018-02-12 10:05 | disposition home or self-care (01) | LOC: LAB 10:04 | PROVIDERS: ATTEND Dermatology | DX: M54.5 Low back pain (principal); E66.9 Obesity, unspecified; R21 Rash and other nonspecific skin eruption | CPT/HCPCS: 36415; 80053; 80061; 82728; 83540; 83550; 83921; 84439; 84443; 85025 ==

== ENCOUNTER 2018-05-14 10:36 | Outpatient (CLI) ==
--- NOTE | 2018-05-15 09:31 | MAMMO ---
EXAM: Bilateral digital screening mammogram (2-D and 3-D) History: Screening Comparison: Bilateral mammogram 05/14/2017 Findings: MLO and CC views of bilateral breasts demonstrate scattered fibroglandular breast parenchy ma. CAD was reviewed by the radiologist. Tomosynthesis was performed. Stable benign bilateral segundo st nodules. There are no developing masses and no suspicious microcalcifications. Impression: Benign stable mammogram. Recommend followup routine screening mammography in 1 year. BIRADS 2
== END 2018-05-14 10:37 | disposition home or self-care (01) ==
LOC: RAD 10:36
PROVIDERS: ATTEND Family Medicine
DX: Z12.31 Encounter for screening mammogram for malignant neoplasm of breast (principal)

== ENCOUNTER 2018-07-03 07:45 | Outpatient (CLI) | END 2018-07-03 07:46 | disposition home or self-care (01) | LOC: LAB 07:45 | PROVIDERS: ATTEND Physician Assistant | DX: Z76.89 Persons encountering health services in other specified circumstances (principal) | CPT/HCPCS: 36415; 80053; 80061; 84443; 85025 ==

== ENCOUNTER 2018-10-10 13:18 | Outpatient (RCR) ==
--- NOTE | 2018-10-14 13:19 | RS.OPPTEV2 ---
Date of Note: 10/10/18 Visit #: 1 Number of visits approved by Insurance: pending Date of Evaluation: 10/10/18 Payer Source: Medicaid Treatment Diagnosis: Low back and right hip pain History of Condition/Mechanism of Injury:: Patient reports history of low back pain for 6-7 years. States she began Pain Management with injections three years ago. States the injections helped a little, but insurance stopped paying for them because they did not help enough. States she aggravated her back pain in August 2018 from moving furniture. Prior Level of Function.....Patient was independent with: ADL's, Self Care, Caregiving, Ambulation/Mobility, Community Integration/Access Functional Limitations: Sleep, Self Care, ADL's, Reaching, Pushing, Pulling, Lifting, Carrying, Sitting, Standing, Bending, Squatting, Ambulation, Community Access/Integration Current Subjective/complaints:: Patient states she has low back and hip pain with any prolonged activity or position. states household activities such as cooking or washing dishes increases her pain. Reports she gets pain into both hips, but the right is worse. States she has pain in the anterior region of the right hip . States her sleep is interrupted from pain. She has to change positions frequently. States her legs will go weak if she stands for too long. She describes tingling at times in the thigh of the right LE. If she sits for too long she will get pain into her hips and up into the back. States she is on a 10 lb weight restriction and was told ot to pull, push, or lift. States she is toward the end of getting disability. States she was told she would not be a candidate for surgery. Describes daily headaches and restless legs at night. Medical History Medical History: Arthritis Surgical History: Cholecystectomy Smoking Status: Current every day smoker Diagnostic Testing/Imaging:: CT of lumbar spine 10/27 2017: No acute compression fracture or subluxation. There is no lytic blastic lesion. The facets and posterior processes are normal. the lumosacral junction is intact. Soft tissues are normal. There are surgical clips in the right upper quadrant. CT of pelvis on 08/24/17: Pelvic ring is intact. Two views of the right hip demonstrates mild osteophyte formation. There is no lytic blastic lesion. There is not displace fracture or dislocation. Mild degenerative disease of the right hip. Hx Home Medications: Flexeril, [place], Hydroxyzine, Ropinirole,Ferrous sulfate Patient's Goals: Her goal is to get some relief of back and hip pain. Pain Assessment - Pain Description Pain Location: low back and right hip Pain Description: Radiating, Aching Current Pain Intensity: 7/10 Worst Pain Intensity: 10/10 Functional Outcome Measure LE Functional Scale: 15 (15/80=81.25% impairment) - G Codes & Severity Modifier G Codes & Modifier: NA Source of G Code score: Na Observation - Observation Posture: Forward Head, Rounded Shoulders, Decreased Lumbar Lordosis Gait - Gait Pattern Gait Comments: Patient ambulates without an assistive device, independently. Demonstrates a cautious gait with slight forward flexion at the lumbar spine and decreased stance on the right LE. - ROM Lumbar Flexion: Hand reach to patellae Sidebending to Left: Reach to Mid-thigh Sidebending to Right: Reach to Mid-thigh Comments: Patient reports increased pain that runs up to low back and higher with lumbar flexion and extension. Reports anterior right hip pain with sidebending to her left. Reports right sidebend causes a "pull" in the left side and low back. Patient would not allow more than 10-15 degrees of lower trunk rotation in supine and would not allow right hip PROM beyond 90 degrees flexion. Also would not allow ER of right hip to perform TRACEY's test. - Strength Trunk Lateral Flexion: 4- Good- Trunk Rotation: 4- Good- Comments: LE strength generally 4+/5 throughout. - Special Tests Comments: Unable to perform valid Special tests due to reports pain with all movement and positions. Palpation Comments:: Reports tenderness with palpation to right lumbosacral region. Describes general tenderness from the right iliac crest to about three inches beyond the Greater trochanter. Sensation - Sensation Right Lower Extremity: Intact/Normal Left Lower Extremity: Intact/Normal Comments: Reports sensation impaired in left LE from the knee down from previous knee surgeries. Additional Comments: Additional Comments: SLR in supine: left to 35 degrees, right hip pain at 20 degrees. Interventions - Exercise/Activities/Manual Therapy Exercises/Activities: none given Manual Therapy: NA - Charges Timed Code Treatment Minutes: 0 Total Treatment Time: 50 mins Procedures billed for this date of service:: EVAL medium EVALUATION COMPLEXITY LEVEL EVALUATION COMPLEXITY LEVEL: HISTORY: High (patient named multiple medical issues and chronic LBP), EXAM OF BODY SYSTEMS: Medium (ROM, MS, mobility, gait) , CLINICAL PRESENTATION: Medium (patient very guarded and high pain profile made evaluation difficult), CLINICAL DECISION MAKING: Medium Assessment Assessment: Patient presents to therapy with a diagnosis of right hip pain and low back pain. She describes a variety of areas of pain and problems during the evaluation. She demonstrates a high pain profile and guarding of right hip ROM, making it difficult to perform valid Special tests. She may benefit from exercises of stretching and trunk stability to reduce her pain and improve her function. Patient Education: Education of diagnosis, Body/Joint mechanics, Education of Plan of Care Rehab Potential: Good Short Term Goals Goal #1: Patient independent and compliant with initial HEP. Goal to be met by: 10/28/18 Goal #2: Pt able to tolerate 15 mins of exercises in department. Goal to be met by: 10/28/18 Goal #3: Lumbar AROM WFL's with minimal to moderate increased pain. Goal to be met by: 10/28/18 Detention Worker Goals Goal #1: Patient knows HEP and to continued ex's to maintain functional level at D/C Goal to be met by: 11/23/18 Goal #2: Score on LE functional scale improved to 45/80. Goal to be met by: 11/23/18 Goal #3: Pt will perform light household cleaning tasks with minimal low back pain. Goal to be met by: 11/23/18 Goal #4: Pt to sleep 6 hours w/ minimal interruption from low back/right hip pain. Goal to be met by: 11/23/18 Plan - Treatment to be Provided Procedures: Therapeutic Exercises, Therapeutic Activity, Patient Education Modalities: Electrical Stimulation, Ultrasound/Phonophoresis, Cryotherapy, Hot Packs - Treatment Plan Frequency: 2-3 X week Duration: 4 weeks Dates of Custodial Goals: 11/23/18 Expiration date of current Insurance Approval:: NA - Treatment Code (1) Low back pain Code(s): M54.5 - LOW BACK PAIN Qualifiers: Chronicity: unspecified Back pain laterality: unspecified Sciatica presence: unspecified whether sciatica present Qualified Code(s): M54.5 - Low back pain (2) Hip pain Code(s): M25.559 - PAIN IN UNSPECIFIED HIP Qualifiers: Laterality: right Qualified Code(s): M25.551 - Pain in right hip
== END 2018-10-22 23:59 ==
PROVIDERS: ATTEND Physician Assistant
DX: M25.551 Pain in right hip (principal); M54.5 Low back pain